=== PATIENT | female | born 2000 | race Caucasian/White ===

== ENCOUNTER 2025-04-18 11:42 | Emergency (ER) | payer OTHER, SELFPAY ==
[2025-04-18 11:44] VITALS: BP 93/51
[2025-04-18 11:57] VITALS: BMI 39.6
[2025-04-18 11:58] VITALS: BP 123/76
[2025-04-18 12:00] VITALS: BP 126/75
[2025-04-18 12:15] LABS: % Basophils 0.5 % (0-2); % Eosinophils 0.7 % (0-6); % Immature Granulocytes 0.6 % (0-0.5); % Lymphocytes 8.7 % (20.5-51.1); % Monocytes 4.6 % (1.7-9.3); % Neutrophils 84.9 % (42.2-75.2); Absolute Basophils 0.1 10^3/uL (0-0.2); Absolute Eosinophils 0.1 10^3/uL (0-0.7); Absolute Immature Granulocytes 0.1 10^3/uL (0-0.05); Absolute Lymphocytes 1.5 10^3/uL (1.2-3.4); Absolute Monocytes 0.8 10^3/uL (0.1-0.6); Absolute Neutrophils 14.7 10^3/uL (1.4-6.5); Hematocrit 44.2 % (37.0-47.0); Hemoglobin 14.6 g/dL (12.0-16.0); Mean Corpuscular Hgb 26.2 pg (27.0-31.0); Mean Corpuscular Volume 79.2 fL (81.0-99.0); Mean Platelet Volume 9.4 fL (7.4-10.4); Nucleated Red Blood Cells % 0 %; Platelet Count 370 10^3/uL (130-400); Red Blood Cell Count 5.58 10^6/uL (4.20-5.40); Red Cell Dist. Width 14.3 % (11.5-14.5); White Blood Cell Count 17.3 10^3/uL (4.8-10.8)
[2025-04-18 12:25] LABS: ALT (SGPT) 21 U/L (0-35); AST (SGOT) 28 U/L (14-36); Albumin 4.2 g/dl (3.5-5.0); Alkaline Phosphatase 150 U/L (38-126); Blood Urea Nitrogen 11 mg/dl (7-17); Calcium 9.3 mg/dl (8.4-10.2); Carbon Dioxide 22 mmol/L (22-30); Chloride 109 mmol/L (98-107); Estimated Creatinine Clearance > 125 ml/min; Glucose 115 mg/dl (70-99); Potassium 4.1 mmol/L (3.5-5.1); Sodium 138 mmol/L (135-145); Total Bilirubin 0.7 mg/dl (0.2-1.3); eGFR > 60.00
[2025-04-18] MEDS: ZOFRAN ODT (ORALLY DISINTEGRATING) 4 MG PO (12:33)
[2025-04-18 13:00] VITALS: BP 130/76
[2025-04-18] MEDS: ZOFRAN 4 MG IV (13:04)
[2025-04-18] MEDS: NSS 1000 IV (13:04)
--- NOTE | 2025-04-18 13:10 | ED.GENMED ---
Addendum entered and electronically signed by Jaime Worrell DO 04/18/25 15:08:
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
Original Note:
History of Present Illness
General
Chief Complaint: Allergic Reaction
Source: patient and family
Exam Limitations: none
Time Seen by Provider: 04/18/25 12:16
Nursing documentation reviewed up to this point in time: agreed with
History of Present Illness
History of Present Illness:
25-year-old female via EMS companied by her mother recently scratched on her nose by a cat was given Augmentin took her first dose today but 2 hours afterward developed violent nausea vomiting abdominal cramping mother states she had a similar but
less severe reaction as a young child to amoxicillin, no fevers, she has PCOS, chronic fatigue, she is on control, no missed doses, the swelling on her nose is essentially gone,
Past History
Past History
ED Past Medical History: Other (PCOS, no abdominal surgeries, chronic fatigue)
Social History
Tobacco: Non-smoker
Alcohol: None
Drug: None
Living: with family
Employment: Employed
Review of Systems
Review of Systems
All Other Systems: Not applicable
Constitutional: Denies fever or fatigue
ABD/GI: Reports abdominal pain, nausea and vomiting
: Reports no symptoms
Musculoskeletal: Reports no symptoms
Skin: Reports no symptoms
Neurological: Reports dizzy and weakness
Endocrine: Reports no symptoms
Hematologic/Lymphatic: Reports no symptoms
Phy Exam
Physical Exam
Physical Exam:
Physical Exam
General: 25 female nontoxic mild distress
Neck: Lips are moist
Heart: s1/s2 regular rate and rhythm, no murmur. equal radial pulses.
Lungs: no acute respiratory distress. clear bilaterally
Abdomen: Soft mild epigastric tenderness no lower abdominal tender
Neuro: alert and oriented. no focal neurological deficits
Skin: no rash
Psychiatric: well kept. interactive and cooperative
Extremities: no edema.
Course
Orders/Labs/Results
Orders:
Orders
04/18/25 12:01
CMP [Comprehensive Metabolic Panel] Urgent
Complete Blood Count/With Diff Urgent
HCG, Serum Qualitative Screen Urgent
Comment: ADD ON
04/18/25 12:16
Ondansetron Orally Disint [Zofran Odt (Orally Disintegrating)] 4 mg PO NOW STA
04/18/25 13:00
0.9% Sodium Chloride 1000 ml [Nss] 1,000 ml IV BOLUS
Ondansetron Injectable [Zofran] 4 mg IV NOW STA
04/18/25 13:10
Add On- LAB Urgent
Tests Added?: Qualitative hCG
04/18/25 13:51
Mag Hydrox/Al Hydrox/Simeth [Maalox] 30 ml Phenobarb/Hyoscy/Atropine/Scop [] 10 ml PO NOW
Pantoprazole [Protonix IV] 40 mg IV NOW STA
04/18/25 14:01
Mag Hydrox/Al Hydrox/Simeth [Maalox] 30 ml .ROUTE .STK-MED ONE
Phenobarb/Hyoscy/Atropine/Scop [] 10 ml .ROUTE .STK-MED ONE
Abnormal Lab Results
04/18/25
12:01
WBC 17.3 H 10^3/uL
(4.8-10.8)
RBC 5.58 H 10^6/uL
(4.20-5.40)
MCV 79.2 L fL
(81.0-99.0)
MCH 26.2 L pg
(27.0-31.0)
Abs Immat Gran (auto) 0.1 H 10^3/uL
(0-0.05)
Absolute Neuts (auto) 14.7 H 10^3/uL
(1.4-6.5)
Absolute Monos (auto) 0.8 H 10^3/uL
(0.1-0.6)
Immature Gran % 0.6 H %
(0-0.5)
Neutrophils % 84.9 H %
(42.2-75.2)
Lymphocytes % 8.7 L %
(20.5-51.1)
Chloride 109 H mmol/L
(98-107)
Glucose 115 H mg/dl
(70-99)
Alkaline Phosphatase 150 H U/L
(38-126)
04/18/25 12:01
04/18/25 12:01
Vital Signs
Initial and Last Documented VS:
Initial Vital Signs
Temp Pulse Resp BP Pulse Ox
98.5 F 78 18 93/51 100
04/18/25 11:44 04/18/25 11:44 04/18/25 11:44 04/18/25 11:44 04/18/25 11:44
Last Documented Vital Signs
Temp Pulse Resp BP Pulse Ox
98.5 F 78 18 93/51 100
04/18/25 11:44 04/18/25 11:44 04/18/25 11:44 04/18/25 11:44 04/18/25 11:44
MDM/Problems Addressed
Differential Diagnosis Includes:
Medication side effect medication allergy enteritis appendicitis other intra-abdominal pathology
MDM/Problems Addressed:
Nausea vomiting after taking antibiotic
Chronic conditions affecting care:
PCOS chronic fatigue
Acute Exacerbation and/or Progression of Chronic Illness:
PCOS chronic fatigue
*Critical Care Note
Total Time (30-74mins, 75-104mins- exclusive of procedures): Not Applicable
Update Note
Update Note:
Update patient feeling better after some fluids and Zofran will continue to perform serial abdominal exams white count is up without the setting of being on antibiotics for an infection and vomiting will see how she does, if she does not improve
consideration for CAT scan looking for other pathology
At this point probably best to stop her Augmentin unclear if this is a true allergy versus intolerance or side effect, does not look like she needs any more antibiotics for her nose
2:45 PM patient feeling better for some fluids Protonix and Maalox
ED Attending Note
-
Portions of this chart may have been created with voice recognition software.� Occasional wrong word or��sound alike� substitutions may have occurred due to the inherent limitations of voice recognition software.
Discharge Plan
Departure
Patient Disposition: Home (Routine Discharge)
Date of Disposition: 04/18/25
Time of Disposition: 14:44
Patient with high blood pressure during this ER visit?: No
Condition: Good
Discharge Problem:
Vomiting
Instructions: Adverse Drug Reactions, Adult (DC)
Prescriptions:
New
pantoprazole [Protonix] 40 mg tablet,delayed release (DR/EC)
40 mg PO DAILY Qty: 20 0RF
ondansetron 4 mg tablet,disintegrating
4 mg PO Q8H PRN (Reason: nausea and vomiting) Qty: 10 0RF
Referrals:
Michael Weaver MD [Family Provider] - Next open appointment
Activity Restrictions/Additional Instructions:
Drink plenty of fluids
Zofran as needed for nausea vomiting
Protonix daily for indigestion
Return to the ER if worsening symptoms
Stop taking Augmentin antibiotic
Interventions
Interventions:
*Risk Screen - Suicide Last Done: 04/18/25 11:44
*General Assessment Last Done: 04/18/25 11:44
*Neglect/Abuse Screening Last Done: 04/18/25 11:58
*ED- Fall Risk Assessment Last Done: 04/18/25 11:44
*ED COVID-19 Vaccine History Last Done: 04/18/25 11:44
ED- Cardiac Assessment Last Done: 04/18/25 11:58
ED-Skin Assessment Last Done: 04/18/25 11:58
Discharge Date and Time
Print Language: [id number]
[2025-04-18 14:00] VITALS: BP 113/69
[2025-04-18] MEDS: MAALOX 40 PO (14:05)
[2025-04-18] MEDS: PROTONIX IV 40 MG IV (14:05)
[2025-04-18 14:08] LABS: HCG, Serum Qualitative Screen Negative
[2025-04-18 15:00] VITALS: BP 123/81
--- NOTE | 2025-04-18 15:06 | ED.GENMED ---
History of Present Illness
General
Chief Complaint: Allergic Reaction
Time Seen by Provider: 04/18/25 12:16
Past History
Past History
ED Past Medical History: Other (PCOS, no abdominal surgeries, chronic fatigue)
Social History
Tobacco: Non-smoker
Alcohol: None
Drug: None
Living: with family
Employment: Employed
Course
Orders/Labs/Results
Orders:
Orders
04/18/25 12:01
CMP [Comprehensive Metabolic Panel] Urgent
Complete Blood Count/With Diff Urgent
HCG, Serum Qualitative Screen Urgent
Comment: ADD ON
04/18/25 12:16
Ondansetron Orally Disint [Zofran Odt (Orally Disintegrating)] 4 mg PO NOW STA
04/18/25 13:00
0.9% Sodium Chloride 1000 ml [Nss] 1,000 ml IV BOLUS
Ondansetron Injectable [Zofran] 4 mg IV NOW STA
04/18/25 13:10
Add On- LAB Urgent
Tests Added?: Qualitative hCG
04/18/25 13:51
Mag Hydrox/Al Hydrox/Simeth [Maalox] 30 ml Phenobarb/Hyoscy/Atropine/Scop [] 10 ml PO NOW
Pantoprazole [Protonix IV] 40 mg IV NOW STA
04/18/25 14:01
Mag Hydrox/Al Hydrox/Simeth [Maalox] 30 ml .ROUTE .STK-MED ONE
Phenobarb/Hyoscy/Atropine/Scop [] 10 ml .ROUTE .STK-MED ONE
Abnormal Lab Results
04/18/25
12:01
WBC 17.3 H 10^3/uL
(4.8-10.8)
RBC 5.58 H 10^6/uL
(4.20-5.40)
MCV 79.2 L fL
(81.0-99.0)
MCH 26.2 L pg
(27.0-31.0)
Abs Immat Gran (auto) 0.1 H 10^3/uL
(0-0.05)
Absolute Neuts (auto) 14.7 H 10^3/uL
(1.4-6.5)
Absolute Monos (auto) 0.8 H 10^3/uL
(0.1-0.6)
Immature Gran % 0.6 H %
(0-0.5)
Neutrophils % 84.9 H %
(42.2-75.2)
Lymphocytes % 8.7 L %
(20.5-51.1)
Chloride 109 H mmol/L
(98-107)
Glucose 115 H mg/dl
(70-99)
Alkaline Phosphatase 150 H U/L
(38-126)
04/18/25 12:01
04/18/25 12:01
Vital Signs
Initial and Last Documented VS:
Initial Vital Signs
Temp Pulse Resp BP Pulse Ox
98.5 F 78 18 93/51 100
04/18/25 11:44 04/18/25 11:44 04/18/25 11:44 04/18/25 11:44 04/18/25 11:44
Last Documented Vital Signs
Temp Pulse Resp BP Pulse Ox
98.5 F 78 18 51 100
04/18/25 11:44 04/18/25 11:44 04/18/25 11:44 04/18/25 11:44 04/18/25 11:44
ED Attending Note
-
Portions of this chart may have been created with voice recognition software.� Occasional wrong word or��sound alike� substitutions may have occurred due to the inherent limitations of voice recognition software.
Discharge Plan
Departure
Patient Disposition: Home (Routine Discharge)
Date of Disposition: 04/18/25
Time of Disposition: 14:44
Patient with high blood pressure during this ER visit?: No
Condition: Good
Discharge Problem:
Vomiting
Instructions: Adverse Drug Reactions, Adult (DC)
Prescriptions:
New
pantoprazole [Protonix] 40 mg tablet,delayed release (DR/EC)
40 mg PO DAILY Qty: 20 0RF
ondansetron 4 mg tablet,disintegrating
4 mg PO Q8H PRN (Reason: nausea and vomiting) Qty: 10 0RF
Referrals:
Michael Weaver MD [Family Provider] - Next open appointment
Activity Restrictions/Additional Instructions:
Drink plenty of fluids
Zofran as needed for nausea vomiting
Protonix daily for indigestion
Return to the ER if worsening symptoms
Stop taking Augmentin antibiotic
Interventions
Interventions:
*Risk Screen - Suicide Last Done: 04/18/25 11:44
*General Assessment Last Done: 04/18/25 11:44
*Neglect/Abuse Screening Last Done: 04/18/25 11:58
*ED- Fall Risk Assessment Last Done: 04/18/25 11:44
*ED COVID-19 Vaccine History Last Done: 04/18/25 11:44
ED- Cardiac Assessment Last Done: 04/18/25 11:58
ED-Skin Assessment Last Done: 04/18/25 11:58
Discharge Date and Time
Print Language: FAROESE
== END 2025-04-18 16:03 | disposition home or self-care (01) ==
LOC: EMR 11:42
PROVIDERS: Emergency Medicine; EMERGENCY PHYSICIAN Emergency Medicine; FAMILY PHYSICIAN Internal Medicine
DX: R11.2 Nausea with vomiting, unspecified (principal); R10.9 Unspecified abdominal pain; E28.2 Polycystic ovarian syndrome; R53.82 Chronic fatigue, unspecified
CPT/HCPCS: 96374; 96375; 96361; 99284; 80053; 84703; 85025

== ENCOUNTER 2025-05-17 13:44 | Emergency (ER) | payer OTHER, SELFPAY ==
[2025-05-17 13:48] VITALS: BP 131/87
--- NOTE | 2025-05-17 15:12 | ED.GENMED ---
History of Present Illness
General
Chief Complaint: Skin Problem
Source: patient
Exam Limitations: none
Time Seen by Provider: 05/17/25 14:47
History of Present Illness
History of Present Illness:
25yoF with a history of depression, ADHD, and chronic fatigue syndrome presenting with her mother for evaluation of a rash. Symptoms initially began 4 days ago with a rash around her ears. Rash is gradually spreading and is now present on her
upper chest. Rash is extremely itchy and is keeping her up at night. She has been using Benadryl cream and cortisone cream which does provide temporary relief. She believes her rash is from a new product that she is using on her horses. She
applied this product to the horses shortly before her symptoms started and admits that she was hugging her animals. No other new exposures. No exposure to similar rash. No fevers or URI symptoms. Patient had a phone call with her PCP today and
was told to go to the ED for evaluation.
Past History
Past History
ED Past Medical History: Other (PCOS, no abdominal surgeries, chronic fatigue)
Social History
Tobacco: Non-smoker
Alcohol: None
Drug: None
Living: with family
Employment: Employed
Phy Exam
General Physical Exam
General Presentation: well appearing and no apparent distress
General Skin: warm and dry
General Habitus: normal
General Mental: alert
ENT Exam
ENT Exam: pharynx normal and normocephalic
Pulmonary Exam
Pulmonary Exam: no respiratory distress
Neurological Exam
Neurological Exam: alert
[place] Coma Scale
Eye Opening: Spontaneous
Verbal Response: Oriented
Motor Response: Obeys Commands
GCS Total Score: 15
Skin Exam
Skin Exam: warm/dry and other (Red maculopapular rash present on neck and upper chest with scattered excoriations consistent with a dermatitis. Blanchable. No skin sloughing or signs of infection.)
Psychiatric Exam
Psychiatric Exam: normal mood/affect
Course
Vital Signs
Initial and Last Documented VS:
Initial Vital Signs
Temp Pulse Resp BP Pulse Ox
98.0 F 105 20 131/87 98
05/17/25 13:48 05/17/25 13:48 05/17/25 13:48 05/17/25 13:48 05/17/25 13:48
Last Documented Vital Signs
Temp Pulse Resp BP Pulse Ox
98.0 F 105 20 131/87 98
05/17/25 13:48 05/17/25 13:48 05/17/25 13:48 05/17/25 13:48 05/17/25 13:48
MDM/Problems Addressed
Differential Diagnosis Includes:
25yoF here with a rash x 4 days. C/o red itchy rash that started near ears and is now present to the chest. Believes she is reacting to a new product that she applied on her horse. Otherwise asymptomatic without systemic symptoms. She is well
appearing in no distress. Red maculopapular rash with excoriations noted on exam consistent with dermatitis. No evidence of infection. Patient started on a course of prednisone. Advised Benadryl as needed. Patient instructed to f/u with PCP or
dermatology with persistent symptoms.
*Pulse Oximetry
Patient hypoxic: no (98%)
*Critical Care Note
Total Time (30-74mins, 75-104mins- exclusive of procedures): Not Applicable
ED Attending Note
-
Portions of this chart may have been created with voice recognition software.� Occasional wrong word or��sound alike� substitutions may have occurred due to the inherent limitations of voice recognition software.
Discharge Plan
Departure
Patient Disposition: Home (Routine Discharge)
Date of Disposition: 05/17/25
Time of Disposition: 15:13
Patient with high blood pressure during this ER visit?: No
Discharge Problem:
Dermatitis
Instructions: Skin Rash (DC)
Prescriptions:
New
prednisone 50 mg tablet
50 mg PO DAILY Qty: 5 0RF
No Action
pantoprazole [Protonix] 40 mg tablet,delayed release (DR/EC)
40 mg PO DAILY Qty: 20 0RF
ondansetron 4 mg tablet,disintegrating
4 mg PO Q8H PRN (Reason: nausea and vomiting) Qty: 10 0RF
Referrals:
Nahum Jones MD [Active, Dermatology]
Michael Weaver MD [Family Provider, Internal Medicine]
Activity Restrictions/Additional Instructions:
Take prednisone as prescribed. You may continue using hydrocortisone cream but do not use this on the face. Take Benadryl as needed for itching.
Please follow-up with your family doctor. Return to the ER with any worsening symptoms.
Interventions
Interventions:
*Risk Screen - Suicide Last Done: 05/17/25 14:53
*General Assessment Last Done: 05/17/25 13:48
*Neglect/Abuse Screening Last Done: 05/17/25 14:53
*ED- Fall Risk Assessment Last Done: 05/17/25 14:53
*ED COVID-19 Vaccine History Last Done: 05/17/25 14:53
*Nursing Disposition Last Done: 05/17/25 16:00
ED-Skin Assessment Last Done: 05/17/25 14:48
Discharge Date and Time
Discharge Date/Time: 05/17/25 15:30
Print Language: YI
== END 2025-05-17 15:30 | disposition home or self-care (01) ==
LOC: EMR 13:44
PROVIDERS: EMERGENCY PHYSICIAN Emergency Medicine; FAMILY PHYSICIAN Internal Medicine
DX: L30.9 Dermatitis, unspecified (principal)
CPT/HCPCS: 99282

== ENCOUNTER 2025-08-08 14:19 | Emergency (ER) | payer OTHER, SELFPAY ==
[2025-08-08 14:25] VITALS: BP 129/91
[2025-08-08 15:07] LABS: Hematocrit 42.1 % (37.0-47.0); Hemoglobin 14.4 g/dL (12.0-16.0); Mean Corp Hgb Conc. 34.2 g/dL (33.0-37.0); Mean Corpuscular Volume 78.0 fL (81.0-99.0); Nucleated Red Blood Cells % 0 %; Platelet Count 437 10^3/uL (130-400); Red Cell Dist. Width 14.3 % (11.5-14.5)
[2025-08-08 15:11] LABS: ALT (SGPT) 14 U/L (0-35); AST (SGOT) 17 U/L (14-36); Albumin 4.6 g/dl (3.5-5.0); Alkaline Phosphatase 162 U/L (38-126); Blood Urea Nitrogen 8 mg/dl (7-17); Calcium 9.9 mg/dl (8.4-10.2); Carbon Dioxide 20 mmol/L (22-30); Chloride 106 mmol/L (98-107); Glucose 89 mg/dl (70-99); Lipase 37 U/L (23-300); Potassium 4.0 mmol/L (3.5-5.1); Sodium 137 mmol/L (135-145); Total Protein 7.9 g/dl (6.3-8.2); eGFR > 60.00
--- NOTE | 2025-08-08 15:47 | ED.GENMED ---
History of Present Illness
General
Chief Complaint: Abdominal Symptoms
Time Seen by Provider: 08/08/25 15:02
History of Present Illness
History of Present Illness:
25-year-old female with history of PCOS and chronic fatigue syndrome presenting to the emergency department with diarrhea. Patient reports for the past 4 days she has been having multiple episodes of diarrhea a day. Reports recently the stool was
turned to greenish/blackish color. She is not on any blood thinners. Denies any associate abdominal pain. Has been taking Imodium. Denies fever. Denies vomiting. Denies any history of bowel surgeries. Denies chest pain or difficulty
breathing. Denies additional acute medical complaints
Past History
Past History
ED Past Medical History: Other (PCOS, no abdominal surgeries, chronic fatigue)
Social History
Tobacco: Non-smoker
Alcohol: None
Drug: None
Living: with family
Employment: Employed
Phy Exam
Physical Exam
Physical Exam:
General: Well-appearing, no clinical signs of dehydration, nontoxic and in no acute distress
HEENT: protecting airway
Neck: appears supple
CV: Normal heart rate, regular rhythm
Resp: No accessory muscle use, no increased work of breathing, lungs clear to auscultation bilaterally
Abd: Soft and non-distended, no tenderness to palpation.
Extremities: No deformities, no swelling, no erythema, pulses and sensation intact
Neuro: alert, no focal neurologic deficit
: deferred
Rectal: Hemoccult negative brown stool
Psych: Normal affect
Skin: Intact
Course
Orders/Labs/Results
Orders:
Orders
08/08/25 14:44
Complete Blood Count/With Diff Urgent
Comprehensive Metabolic Panel Urgent
Lipase Urgent
Abnormal Lab Results
08/08/25
14:44
WBC 12.8 H 10^3/uL
(4.8-10.8)
MCV 78.0 L fL
(81.0-99.0)
MCH 26.7 L pg
(27.0-31.0)
Plt Count 437 H 10^3/uL
(130-400)
Abs Immat Gran (auto) 0.1 H 10^3/uL
(0-0.05)
Absolute Neuts (auto) 8.7 H 10^3/uL
(1.4-6.5)
Carbon Dioxide 20 L mmol/L
(22-30)
Alkaline Phosphatase 162 H U/L
(38-126)
08/08/25 14:44
08/08/25 14:44
Vital Signs
Initial and Last Documented VS:
Initial Vital Signs
Temp Pulse Resp BP Pulse Ox
98.0 F 96 16 129/91 98
08/08/25 14:25 08/08/25 14:25 08/08/25 14:25 08/08/25 14:25 08/08/25 14:25
Last Documented Vital Signs
Temp Pulse Resp BP Pulse Ox
98.0 F 96 16 129/91 98
08/08/25 14:25 08/08/25 14:25 08/08/25 14:25 08/08/25 14:25 08/08/25 14:25
MDM/Problems Addressed
MDM/Problems Addressed:
25-year-old female presenting for diarrhea. Vital signs on arrival are normal.
On exam, patient resting comfortably, nontoxic, no acute distress or discomfort. On abdominal exam, no tenderness. Rectal exam performed, Hemoccult negative. At this time suspect viral enteritis without concern for GI bleed. Given duration of
symptoms, no present indication for antibiotics. No indication for advanced imaging. Labs obtained prior to my assessment, unremarkable with minimal elevation of WBC. Normal hemoglobin. At this time feel stable for discharge. Advised continued
supportive therapy. Return precautions discussed with patient verbalized understanding
*Pulse Oximetry
SaO2: 98
Oxygen Mode of Delivery: Room air
Patient hypoxic: no
*Critical Care Note
Total Time (30-74mins, 75-104mins- exclusive of procedures): Not Applicable
ED Attending Note
-
Portions of this chart may have been created with voice recognition software.� Occasional wrong word or��sound alike� substitutions may have occurred due to the inherent limitations of voice recognition software.
Discharge Plan
Departure
Patient Disposition: Home (Routine Discharge)
Date of Disposition: 08/08/25
Time of Disposition: 15:54
Patient with high blood pressure during this ER visit?: No
Condition: Good
Discharge Problem:
Diarrhea
Instructions: Diarrhea in teens and adults, [place] Diet
Prescriptions:
No Action
pantoprazole [Protonix] 40 mg tablet,delayed release (DR/EC)
40 mg PO DAILY Qty: 20 0RF
ondansetron 4 mg tablet,disintegrating
4 mg PO Q8H PRN (Reason: nausea and vomiting) Qty: 10 0RF
prednisone 50 mg tablet
50 mg PO DAILY Qty: 5 0RF
Referrals:
Lorie Olmedo DO [Active, Gastroenterology]
Activity Restrictions/Additional Instructions:
You were seen in the emergency department for diarrhea
You were found to have reassuring laboratory analysis and physical exam, as well as vital signs
Please follow-up closely with your primary care physician. If symptoms persist we recommend you follow-up with a gastrointestinal doctor
Return to the emergency department for any worsening of your symptoms, or any development of chest pain, difficulty breathing, abdominal pain with persistent vomiting and inability to tolerate food or liquid by mouth (concern for dehydration),
weakness, headache or confusion, fever greater than 100.4, or any additional symptoms that are concerning to you.
Thank you for choosing [facility].
Interventions
Interventions:
*Risk Screen - Suicide Last Done: 08/08/25 14:25
*General Assessment Last Done: 08/08/25 14:25
*Neglect/Abuse Screening Last Done: 08/08/25 14:25
Discharge Date and Time
Print Language: DOMINICAN
[2025-08-08 16:14] VITALS: BMI 35.7
== END 2025-08-08 16:21 | disposition home or self-care (01) ==
LOC: EMR 14:19
PROVIDERS: EMERGENCY PHYSICIAN Student in an Organized Health Care Education/Training Program; FAMILY PHYSICIAN Internal Medicine
DX: R19.7 Diarrhea, unspecified (principal); E28.2 Polycystic ovarian syndrome
CPT/HCPCS: 99283; 80053; 83690; 85025